=== PATIENT | female | born 1990 | race Caucasian/White ===

== ENCOUNTER 2017-10-10 17:33 | Emergency (ER) | payer OTHER ==
[~2017-10-10] VITALS: Ht 175.3 cm; Wt 129.3 kg
[~2017-10-10 17:33] MED LIST: COL100 PO; DUL10S RC
[2017-10-10 17:55] VITALS: Ht 175.3 cm; Wt 129.3 kg
[2017-10-10 19:35] VITALS: BP 127/75
== END 2017-10-10 19:35 | disposition home or self-care (01) ==
LOC: ED 17:33
DX: O26.892 Other specified pregnancy related conditions, second trimester (principal); G89.29 Other chronic pain; M54.9 Dorsalgia, unspecified; R10.9 Unspecified abdominal pain; Z88.6 Allergy status to analgesic agent; Z3A.00 Weeks of gestation of pregnancy not specified; Z87.442 Personal history of urinary calculi
CPT/HCPCS: Q0092